=== PATIENT | female | born 1945 | race Caucasian/White ===

== ENCOUNTER 2020-09-23 19:03 | Emergency (ER) | payer MEDICARE, OTHER ==
[~2020-09-23] VITALS: Ht 167.6 cm; Wt 61.5 kg
[2020-09-23] MEDS ORDERED: LIDOCAINE-MPF 1%, 5ML INFIL ONE (19:30)
[2020-09-23] MEDS ORDERED: DIPH,PERTUSS(ACELL),TET VAC/PF 0.5 ML IM-VACC ONE (19:30)
[2020-09-23] MEDS ORDERED: LIDOCAINE-MPF 1%, 5ML ONE (20:06)
[2020-09-23] MEDS ORDERED: BACITRACIN ZINC OINT 500U/GM, 0.9 GM ONE (20:45)
[2020-09-23 20:55] VITALS: BP 113/59
--- NOTE | 2020-09-23 21:08 | NUR ---
Patient/Caregiver given discharge instructions and they have confirmed that they understand the instructions. Patient ambulatory with steady gait. NAD, all questions answered appropriately, denies additional needs at this time. No personal belongings left in room after discharge. pt came in for a cat stratch down right leg. superficial wound. cleansed to hospital protocol. applied neomycin and bandaids. no signs of infection noted.
== END 2020-09-23 21:11 | disposition home or self-care (01) ==
LOC: ED 19:33
DX: S80.811A Abrasion, right lower leg, initial encounter (principal); X58.XXXA Exposure to other specified factors, initial encounter; Y93.89 Activity, other specified; Y92.009 Unspecified place in unspecified non-institutional (private) residence as the place of occurrence of the external cause; Y99.8 Other external cause status
CPT/HCPCS: 90471; 90715